=== PATIENT | female | born 1995 ===

== ENCOUNTER 2024-08-29 09:57 | Emergency (ER) | payer SELFPAY ==
[2024-08-29 10:04] VITALS: TEMP 97.8
[2024-08-29 11:00] LABS: PH 5.5 (5.0-8.5); URINE APPEARANCE CLOUDY (CLEAR/HAZY); URINE BLOOD 3+ (NEGATIVE); URINE COLOR YELLOW (YELLOW); URINE GLUCOSE TRACE (NEGATIVE); URINE KETONE NEGATIVE (NEGATIVE); URINE NITRATE NEGATIVE (NEGATIVE); URINE PROTEIN(semi-quant) 3+ (NEGATIVE); URINE UROBILINOGEN 0.2 E.U/dL (0.2-1.0)
[2024-08-29] MEDS ORDERED: Ondansetron 4 MG/2 ML VIAL IV ONE (11:15)
[2024-08-29] MEDS ORDERED: NS 1,000 ML IV ONE (11:15)
[2024-08-29 11:29] LABS: COLLECTION METHOD CLEAN CATCH
[2024-08-29 11:46] LABS: BASO % 0.4 % (0.0-2.0); EOS # 0.3 K/mm3 (0.0-0.7); EOS % 3.4 % (0.0-4.0); GRAN # 6.2 K/mm3 (1.4-6.5); GRAN % 63.3 % (42.2-75.2); HEMOGLOBIN 11.5 g/dl (12.5-16.0); LYMPH # 2.7 K/mm3 (1.2-3.4); MEAN CELL VOLUME 71 fl (80.0-100.0); MEAN CORPUSCULAR HEMOGLOBIN 22 pg (27-31); MEAN CORPUSCULAR HGB CONC 32 g/dl (33.0-37.0); MEAN PLATELET VOLUME 9.9 fl (7.4-10.4); MONO # 0.6 K/mm3 (0.1-0.6); MONO % 5.6 % (1.7-9.3); PLATELET COUNT 341 K/mm3 (130-400); RED BLOOD COUNT 5.15 M/mm3 (4.10-5.30); REDCELL DISTRIBUTION WIDTH-CV 17.1 % (11.5-14.5)
[2024-08-29 11:50] LABS: HEMATOCRIT 36.3 % (37.0-47.0)
[2024-08-29 11:55] LABS: ALBUMIN 3.4 g/dL (3.5-5.0); BILIRUBIN,TOTAL 0.2 mg/dL (0.2-1.2); C-REACTIVE PROTEIN 0.86 mg/dL (0.00-0.50); CREATININE, serum 0.73 mg/dL (0.57-1.11); POTASSIUM 3.9 mEq/L (3.5-4.5); TOTAL PROTEIN 7.3 g/dl (6.2-8.1)
[2024-08-29] MEDS ORDERED: Iohexol 300 - 100 ML VIAL IV ONE (13:03)
[2024-08-29] MEDS ORDERED: NS 100 ML IV SCH (13:04)
[2024-08-29] MEDS ORDERED: cefTRIAXone 1 G in Water For Injection,Sterile 10 ML IV ONE (15:15)
[2024-08-29] MEDS ORDERED: CEFTIN500 MG PO (16:05)
[2024-08-29 16:06] VITALS: BP 109/70; PULSE 60
== END 2024-08-29 16:15 | disposition home or self-care (01) ==
LOC: COL.ER 09:57
PROVIDERS: Nurse Practitioner
DX: N83.202 Unspecified ovarian cyst, left side (principal); N39.0 Urinary tract infection, site not specified; Z87.891 Personal history of nicotine dependence
CPT/HCPCS: J0696; J2405; J7030; Q9967